=== PATIENT | female | born 2000 | race Caucasian/White ===

== ENCOUNTER → 2025-04-28 13:13 | Outpatient (REF) | payer OTHER, SELFPAY | LOC: RAD 13:13 | PROVIDERS: ATTENDING PHYSICIAN Physician Assistant Medical; FAMILY PHYSICIAN Nurse Practitioner Family | DX: M79.662 Pain in left lower leg (principal) | CPT/HCPCS: 93971 ==

== ENCOUNTER → 2025-05-08 16:18 | Outpatient (REF) | payer OTHER, SELFPAY | LOC: RAD 16:18 | PROVIDERS: ATTENDING PHYSICIAN Nurse Practitioner Family | DX: R06.02 Shortness of breath (principal) | CPT/HCPCS: 71046 ==

== ENCOUNTER → 2025-06-06 08:24 | Outpatient (REF) | payer OTHER, SELFPAY | LOC: RAD 08:24 | PROVIDERS: ATTENDING PHYSICIAN Nurse Practitioner Family | DX: R06.02 Shortness of breath (principal) | CPT/HCPCS: 71046 ==

== ENCOUNTER → 2025-08-11 07:38 | Outpatient (REF) | payer OTHER, SELFPAY | LOC: RCS 07:38 | PROVIDERS: ATTENDING PHYSICIAN Internal Medicine; FAMILY PHYSICIAN Nurse Practitioner Family | DX: R00.2 Palpitations (principal); R00.1 Bradycardia, unspecified; R07.9 Chest pain, unspecified; R06.02 Shortness of breath | CPT/HCPCS: 93017 ==

== ENCOUNTER → 2025-08-23 08:28 | Outpatient (REF) | payer OTHER, SELFPAY | LOC: RCS 08:28 | PROVIDERS: ATTENDING PHYSICIAN Internal Medicine; FAMILY PHYSICIAN Nurse Practitioner Family | DX: R00.2 Palpitations (principal); R00.1 Bradycardia, unspecified; R07.9 Chest pain, unspecified; R06.02 Shortness of breath | CPT/HCPCS: 93306 ==